=== PATIENT | female | born 1955 | race Caucasian/White ===

== ENCOUNTER 2016-07-23 14:45 | Emergency (ER) | payer OTHER ==
[~2016-07-23] VITALS: Ht 162.6 cm; Wt 105.8 kg
[2016-07-23] MEDS ORDERED: SODIUM CHLORIDE 0.9% 1000ML 1,000 ML IV STA (15:12)
[2016-07-23 15:16] VITALS: Ht 162.6 cm; Wt 105.8 kg
[2016-07-23] MEDS ORDERED: CEFAZOLIN SOD 1000MG/55 ML D5W IV STA (15:34)
[2016-07-23] MEDS ORDERED: BACL10TA PO (15:44)
[2016-07-23] MEDS ORDERED: GABA600T PO (15:44)
[2016-07-23] MEDS ORDERED: ACET-749 PO (15:44)
[2016-07-23] MEDS ORDERED: LISI2.5T5 PO (15:44)
[2016-07-23] MEDS ORDERED: LEVO50TA6 PO (15:44)
[2016-07-23] MEDS ORDERED: TRIA37.5 PO (15:44)
[2016-07-23] MEDS ORDERED: METF-383 PO (15:44)
[2016-07-23] MEDS ORDERED: VENL150T33 PO (15:44)
[2016-07-23] MEDS ORDERED: PANT40TA PO (15:44)
[2016-07-23] MEDS ORDERED: LORA-741 PO (15:44)
[2016-07-23] MEDS ORDERED: DIPHTHERIA/TETANUS/PERTUSSIS 0.5 ML SYR/VIAL IM. ONE (15:45)
[2016-07-23 15:49] LABS: BASO % 0.3 %; BASO ABS # 0.02 K/uL (0-0.2); COMPLETE YES; EOS % 7.9 %; HEMATOCRIT 42.5 % (37-47); IG% 0.4 %; LYMPH % 20.1 %; LYMPH ABS # 1.35 K/uL (1.2-3.4); MEAN CELL VOLUME 94.2 fL (80-100); MEAN CORPUSCULAR HEMOGLOBIN 29.9 pg (25-34); MEAN CORPUSCULAR HGB CONC 31.8 g/dl (32-36); MEAN PLATELET VOLUME 11.5 fL (7.4-10.4); NEUT % 64.3 %; PLATELET COUNT 138 K/uL (130-400); RED BLOOD COUNT 4.51 M/uL (4.2-5.4)
[2016-07-23 16:00] LABS: PROTHROMBIN TIME (PATIENT) 10.8 SECONDS (9.0-12.0)
--- NOTE | 2016-07-23 16:19 | DIAGNOSTIC IMAGING REPORT ---
RIGHT FOOT MIN 3 VIEWS ROUTINE CLINICAL HISTORY: Right 5th toe avulsion/open dislocation, fall. COMPARISON: None FINDINGS: A bandage is noted overlying the right fourth and fifth toes. There is a fracture/dislocation deformity of the right fifth metatarsophalangeal joint. Associated bone fragment is present. Fine detail is diminished on this exam. Tarsometatarsal joints are intact. No additional dislocations are present. IMPRESSION: Open fracture/dislocation deformity of the right fifth metatarsophalangeal joint with associated bone fragment. Electronically signed by: Garfield Harding M.D. 07/23/2016 4:17 PM Dictated Date/Time: 07/23/2016 4:15 PM
[2016-07-23 16:21] LABS: BUN/CREATININE RATIO 12.6 (10-20); CALCIUM 9.2 mg/dl (8.5-10.1); CREATININE 0.77 mg/dl (0.60-1.20); POTASSIUM 3.8 mmol/L (3.5-5.1)
[2016-07-23 16:30] LABS: THYROID STIMULATING HORMONE 7.58 uIu/ml (0.300-4.500)
[2016-07-23 17:06] LABS: URINE APPEARANCE CLOUDY (CLEAR); URINE COLOR DK YELLOW; URINE EPITHELIAL CELL AUTO 20-30 /lpf (0-5); URINE NITRITE NEG (NEG); URINE PH 5.5 (4.5-7.5); URINE SPECIFIC GRAVITY 1.041 (1.000-1.030); UROBILINOGEN NEG (NEG)
[2016-07-23 17:09] LABS: MANUAL MICROSCOPIC REQUIRED? NO; REVIEW REQ? YES
[2016-07-23 17:10] VITALS: O2SAT 95
[2016-07-23 17:10] LABS: URINE BILIRUBIN NEG (NEG)
[2016-07-23] MEDS ORDERED: MIDAZOLAM HCL 1 MG/ML 2ML VIAL ONE (17:14)
[2016-07-23] MEDS ORDERED: FENTANYL CITRATE INJ 50 MCG/1 ML 2 ML VIAL ONE (17:14)
[2016-07-23] MEDS ORDERED: EpHEDrine SULFATE INJ 50 MG/ML AMP IV PRN (17:30)
[2016-07-23] MEDS ORDERED: FENTANYL CITRATE INJ 50 MCG/1 ML 2 ML VIAL IV PRN (17:30)
[2016-07-23] MEDS ORDERED: ONDANSETRON INJ 2 MG/ML 2 ML VIAL IV PRN (17:30)
[2016-07-23] MEDS ORDERED: LABETALOL HCL IV 5 MG/ML 20ML IV PRN (17:30)
[2016-07-23] MEDS ORDERED: NALOXONE HCL 0.4 MG/1 ML VIAL/CARP IV PRN (17:30)
[2016-07-23] MEDS ORDERED: PHENYLEPHRINE 100MCG/ML 5ML SYR IV PRN (17:30)
[2016-07-23] MEDS ORDERED: ATROPINE SULFATE 0.1 MG/ML 5ML SYR IV PRN (17:30)
[2016-07-23] MEDS ORDERED: FLUMAZENIL 0.1 MG/1 ML 10 ML VIAL IV PRN (17:30)
[2016-07-23] MEDS ORDERED: HYDROmorphone INJ 2 MG/ML SYR/VIAL IV PRN (17:30)
[2016-07-23] MEDS ORDERED: MEPERIDINE HCL 25 MG/ML CARP IV PRN (17:30)
--- NOTE | 2016-07-23 17:52 | History and Physical ---
History & Physical Date July 23, 2016. History of Present Illness The patient is a 61 year old female with complaints of open fracture right 5th toe. occured after a fall Past Medical/Surgical History Medical Problems: (1) Hypercholesteremia (2) Hypertension (3) Multiple sclerosis Allergies Coded Allergies: Ibuprofen (Unverified Allergy, Severe, fluid retention, 07/23/16) Home Medications Scheduled Baclofen (Lioresal), 10 MG PO TID Levothyroxine Sodium (Levothyroxine Sodium), 1 TAB PO DAILY Lisinopril (Lisinopril), 2.5 MG PO DAILY Metformin Hcl (Glucophage), 850 MG PO BID Pantoprazole (Protonix), 40 MG PO DAILY Triamterene/Hctz (Dyazide 37.5MG/25MG), 1 TAB PO DAILY Venlafaxine Hcl (Venlafaxine Hcl Er), 1 TAB PO DAILY Scheduled PRN Acetaminophen/Codeine (Tylenol W/Codeine #3), 1-2 TAB PO Q6H PRN for Pain Lorazepam (Ativan), 0.5 MG PO TID PRN for Anxiety/Insomnia Miscellaneous Medications Gabapentin (Neurontin), 600 MG PO Physical Examination Skin: warm/dry, no rash Eyes: normal inspection, EOMI, sclerae normal ENT: normal ENT inspection Head: normocephalic Neck: supple Respiratory/Chest: lungs clear Cardiovascular: regular rate, rhythm Abdomen / GI: normal bowel sounds, non tender Extremities: + pertinent finding (open fracture of right 5th toe ) Plan of Treatment To OR emergerntly for I and D and piining of toe. R/b discussed
[2016-07-23] MEDS ORDERED: LIDOCAINE HCL 1% 20 ML VIAL ONE (18:01)
[2016-07-23] MEDS ORDERED: BACITRACIN 50000 UNIT VIAL ONE (18:02)
[2016-07-23] MEDS ORDERED: BUPIVACAINE 0.5 % 5 MG/1 ML MPF 30ML VIAL ONE (18:02)
[2016-07-23] MEDS ORDERED: LIDOCAINE HCL 2% 2 ML VIAL (20MG/ML) ONE (18:12)
[2016-07-23] MEDS ORDERED: PROPOFOL IV EMULSION 10 MG/ML 20 ML VIAL IV ONE ×2 (18:12→18:22)
[2016-07-23] MEDS ORDERED: CEFAZOLIN SOD 1 GM VIAL ONE (18:12)
--- NOTE | 2016-07-23 18:51 | History and Physical ---
History & Physical Date July 23, 2016. History of Present Illness Past Medical/Surgical History Medical Problems: (1) Hypercholesteremia (2) Hypertension (3) Multiple sclerosis Allergies Coded Allergies: Ibuprofen (Unverified Allergy, Severe, fluid retention, 07/23/16) Home Medications Scheduled Baclofen (Lioresal), 10 MG PO TID Levothyroxine Sodium (Levothyroxine Sodium), 1 TAB PO DAILY Lisinopril (Lisinopril), 2.5 MG PO DAILY Metformin Hcl (Glucophage), 850 MG PO BID Pantoprazole (Protonix), 40 MG PO DAILY Triamterene/Hctz (Dyazide 37.5MG/25MG), 1 TAB PO DAILY Venlafaxine Hcl (Venlafaxine Hcl Er), 1 TAB PO DAILY Scheduled PRN Acetaminophen/Codeine (Tylenol W/Codeine #3), 1-2 TAB PO Q6H PRN for Pain Lorazepam (Ativan), 0.5 MG PO TID PRN for Anxiety/Insomnia Miscellaneous Medications Gabapentin (Neurontin), 600 MG PO Plan of Treatment see dicatated H and P
--- NOTE | 2016-07-23 19:12 | Anesthesiology Progress Note ---
Anesthesia Post Op Note Date & Time July 23, 2016 at 19:12 Vital Signs Pain Intensity: 0 Vital Signs Past 12 Hours Date Time Temp Pulse Resp B/P Pulse Ox O2 Delivery O2 Flow Rate FiO2 07/23/16 19:10 36.2 77 16 132/74 97 Mask 07/23/16 19:00 36.2 83 16 115/81 100 Mask 10 07/23/16 17:28 36.9 75 16 139/89 96 Room Air 07/23/16 17:10 36.8 78 16 136/80 95 07/23/16 17:00 78 16 136/80 07/23/16 15:56 76 07/23/16 15:48 74 16 136/80 95 Room Air 07/23/16 15:48 94 Room Air 07/23/16 14:54 36.8 78 18 148/90 94 Room Air Notes Mental Status: alert / awake / arousable, participated in evaluation Pt Amnestic to Procedure: Yes Nausea / Vomiting: adequately controlled Pain: adequately controlled Airway Patency, RR, SpO2: stable & adequate BP & HR: stable & adequate Hydration State: stable & adequate Anesthetic Complications: no major complications apparent
[2016-07-23] MEDS ORDERED: OXYCODONE/ACETAMINOPHEN 5-325 TAB PO PRN ×2 (19:15)
[2016-07-23 19:20] VITALS: BP 125/74; PULSE 70; TEMP 36.5; O2SAT 95
--- NOTE | 2016-07-23 19:28 | HISTORY & PHYSICAL EXAMINATION ---
DATE OF ADMISSION: 07/23/2016 HISTORY OF PRESENT ILLNESS: This is a 61-year-old female who I have been consulted from the Emergency Department. She sustained an injury which occurred after a fall, today she noted injury to her toe, she is uncertain of the exact mechanism. She has an open fracture to the right toe. PAST MEDICAL HISTORY: Prediabetes, history of multiple sclerosis, currently on disability for and history of hypercholesterolemia. PHYSICAL EXAMINATION HEART: Regular rhythm. LUNGS: Clear. EXTREMITIES: Right foot exam shows open fracture at the toe, at the base of the proximal phalanx of the toe open, bone is exposed, the metatarsal head. There is about 70 degrees gross angular deformity. IMAGING DATA: Radiographic evaluation reaveals a markedly displaced proximal phalanx fracture of the right fifth toe. ASSESSMENT: 1. This is a 61-year-old female with an open grade 2 right fifth toe proximal phalanx fracture with significant displacement. 1. Multiple sclerosis. PLAN: We will take her emergently to the operating room for irrigation, debridement and pinning, will do this under local MAC anesthesia, likely with a local block and sedation. I discussed possibly she may lose her toe, possibility of infection, nonunion of the bone, stiffness, etc. We also discussed options of amputation, which I did consent her for. Plan for surgical intervention shortly. FELY
--- NOTE | 2016-07-23 19:41 | EMERGENCY ROOM VISIT NOTE ---
History Report prepared by Janay: Sandra Oscar Under the Supervision of: Dr. Mika Bell M.D. First contact with patient: 15:12 Chief Complaint: FALL Stated Complaint: FALL History of Present Illness The patient is a 61 year old male who presents to the Emergency Room with complaints of a sudden right foot injury secondary to a fall that occurred 1.5 hours prior to arrival. The patient also notes the following associated symptoms, leg weakness, which is a chronic issue from her MS. Her legs "just gave out". The patient denies taking any pain medication prior to arrival. Tetanus UTD within the last 8 years. She has chronic numbness in the legs secondary to neuropathy. Pain is rated 1/10 and describes her discomfort as a burning pain. She had a UTI that was treated a week ago. The patient denies any other injury. She states that she has seen orthopedics in [place] in the past. The patient notes a history of hypertension, pre-diabetes, and high cholesterol. Pt denies LOC, headache, fevers, chills, diaphoresis, visual changes, neck pain, chest pain, breathing difficulties, nausea, vomiting, abdominal pain, back pain, melena, hematochezia, new urinary symptoms, lymphadenopathy, rash, or other complaints. Source of History: patient Onset: 1.5 hours prior to arrival Position: foot (right) Symptom Intensity: 1/10 Quality: burning Timing: other (sudden) Associated Symptoms: + numbness (bilateral leg), + weakness (bilateral leg) Review of Systems See HPI for pertinent positives and negatives. A total of ten systems were reviewed and were otherwise negative. Past Medical & Surgical Medical Problems: (1) Hypercholesteremia (2) Hypertension (3) Multiple sclerosis Family History No pertinent family history stated. Social History Smoking Status: Never Smoker Marital Status: single Occupation Status: disabled Current/Historical Medications Scheduled Baclofen (Lioresal), 10 MG PO TID Levothyroxine Sodium (Levothyroxine Sodium), 1 TAB PO DAILY Lisinopril (Lisinopril), 2.5 MG PO DAILY Metformin Hcl (Glucophage), 850 MG PO BID Pantoprazole (Protonix), 40 MG PO DAILY Triamterene/Hctz (Dyazide 37.5MG/25MG), 1 TAB PO DAILY Venlafaxine Hcl (Venlafaxine Hcl Er), 1 TAB PO DAILY Scheduled PRN Acetaminophen/Codeine (Tylenol W/Codeine #3), 1-2 TAB PO Q6H PRN for Pain Lorazepam (Ativan), 0.5 MG PO TID PRN for Anxiety/Insomnia Miscellaneous Medications Gabapentin (Neurontin), 600 MG PO Allergies Coded Allergies: Ibuprofen (Unverified Allergy, Severe, fluid retention, 07/23/16) Physical Exam Vital Signs Date Time Temp Pulse Resp B/P Pulse Ox O2 Delivery O2 Flow Rate FiO2 07/23/16 19:20 36.5 70 16 125/74 95 Room Air 07/23/16 19:15 36.2 72 16 143/72 97 Room Air 07/23/16 19:10 36.2 77 16 132/74 97 Mask 07/23/16 19:00 36.2 83 16 115/81 100 Mask 10 07/23/16 17:28 36.9 75 16 139/89 96 Room Air 07/23/16 17:10 36.8 78 16 136/80 95 07/23/16 17:00 78 16 136/80 07/23/16 15:56 76 07/23/16 15:48 74 16 136/80 95 Room Air 07/23/16 15:48 94 Room Air 07/23/16 14:54 36.8 78 18 148/90 94 Room Air Physical Exam GENERAL: Awake, alert, well-appearing, in no distress HENT: Normocephalic, atraumatic. Oropharynx unremarkable. EYES: Normal conjunctiva. Sclera non-icteric. NECK: Supple. No nuchal rigidity. FROM. No JVD. RESPIRATORY: Clear to auscultation. CARDIAC: Regular rate, normal rhythm. Extremities warm and well perfused. Pulses equal. ABDOMEN: Soft, non-distended. No tenderness to palpation. No rebound or guarding. No masses. RECTAL: Deferred. MUSCULOSKELETAL: Near avulsion of the right 5th toe, arnulfo fragments are exposed , bleeding is controlled, decreased sensation bilateral lower extremities. 2+ pitting edema bilaterally. NEURO: Normal sensorium. No sensory or motor deficits noted. SKIN: No rash or jaundice noted. Medical Decision & Procedures ER Provider Diagnostic Interpretation: X-ray: Per my interpretation, radiologist review. RIGHT FOOT MIN 3 VIEWS ROUTINE CLINICAL HISTORY: Right 5th toe avulsion/open dislocation, fall. COMPARISON: None FINDINGS: A bandage is noted overlying the right fourth and fifth toes. There is a fracture/dislocation deformity of the right fifth metatarsophalangeal joint. Associated bone fragment is present. Fine detail is diminished on this exam. Tarsometatarsal joints are intact. No additional dislocations are present. IMPRESSION: Open fracture/dislocation deformity of the right fifth metatarsophalangeal joint with associated bone fragment. Electronically signed by: Garfield Harding M.D. 07/23/2016 4:17 PM Dictated Date/Time: 07/23/2016 4:15 PM Laboratory Results 07/23/16 15:25 Red Blood Count 4.51, Mean Corpuscular Volume 94.2, Mean Corpuscular Hemoglobin 29.9, Mean Corpuscular Hemoglobin Concent 31.8, Mean Platelet Volume 11.5, Neutrophils (%) (Auto) 64.3, Lymphocytes (%) (Auto) 20.1, Monocytes (%) (Auto) 7.0, Eosinophils (%) (Auto) 7.9, Basophils (%) (Auto) 0.3, Neutrophils # (Auto) 4.30, Lymphocytes # (Auto) 1.35, Monocytes # (Auto) 0.47, Eosinophils # (Auto) 0.53, Basophils # (Auto) 0.02 07/23/16 15:25 Test 07/23/16 15:25 07/23/16 16:50 07/23/16 19:11 White Blood Count 6.70 K/uL (4.8-10.8) Red Blood Count 4.51 M/uL (4.2-5.4) Hemoglobin 13.5 g/dL (12.0-16.0) Hematocrit 42.5 % (37-47) Mean Corpuscular Volume 94.2 fL (80-100) Mean Corpuscular Hemoglobin 29.9 pg (25-34) Mean Corpuscular Hemoglobin Concent 31.8 g/dl (32-36) Platelet Count 138 K/uL (130-400) Mean Platelet Volume 11.5 fL (7.4-10.4) Neutrophils (%) (Auto) 64.3 % Lymphocytes (%) (Auto) 20.1 % Monocytes (%) (Auto) 7.0 % Eosinophils (%) (Auto) 7.9 % Basophils (%) (Auto) 0.3 % Neutrophils # (Auto) 4.30 K/uL (1.4-6.5) Lymphocytes # (Auto) 1.35 K/uL (1.2-3.4) Monocytes # (Auto) 0.47 K/uL (0.11-0.59) Eosinophils # (Auto) 0.53 K/uL (0-0.5) Basophils # (Auto) 0.02 K/uL (0-0.2) RDW Standard Deviation 44.1 fL (36.4-46.3) RDW Coefficient of Variation 12.8 % (11.5-14.5) Immature Granulocyte % (Auto) 0.4 % Immature Granulocyte # (Auto) 0.03 K/uL (0.00-0.02) Prothrombin Time 10.8 SECONDS (9.0-12.0) Prothromb Time International Ratio 1.0 (0.9-1.1) Activated Partial Thromboplast Time 27.0 SECONDS (21.0-31.0) Partial Thromboplastin Ratio 1.0 Anion Gap 8.0 mmol/L (3-11) Est Creatinine Clear Calc Drug Dose 91.0 ml/min Estimated GFR () 96.6 Estimated GFR (Non- 83.3 BUN/Creatinine Ratio 12.6 (10-20) Calcium Level 9.2 mg/dl (8.5-10.1) Magnesium Level 2.0 mg/dl (1.8-2.4) Total Bilirubin 0.2 mg/dl (0.2-1) Direct Bilirubin 0.1 mg/dl (0-0.2) Aspartate Amino Transf (AST/SGOT) 31 U/L (15-37) Alanine Aminotransferase (ALT/SGPT) 40 U/L (12-78) Alkaline Phosphatase 115 U/L (45-117) Total Protein 7.3 gm/dl (6.4-8.2) Albumin 3.6 gm/dl (3.4-5.0) Lipase 152 U/L (73-393) Thyroid Stimulating Hormone (TSH) 7.580 uIu/ml (0.300-4.500) Urine Color DK YELLOW Urine Appearance CLOUDY (CLEAR) Urine pH 5.5 (4.5-7.5) Urine Specific [place] 1.041 (1.000-1.030) Urine Protein TRACE (NEG) Urine Glucose (UA) NEG (NEG) Urine Ketones TRACE (NEG) Urine Occult Blood NEG (NEG) Urine Nitrite NEG (NEG) Urine Bilirubin NEG (NEG) Urine Urobilinogen NEG (NEG) Urine Leukocyte Esterase MODERATE (NEG) Urine WBC (Auto) >30 /hpf (0-5) Urine RBC (Auto) 0-4 /hpf (0-4) Urine Hyaline Casts (Auto) 1-5 /lpf (0-5) Urine Epithelial Cells (Auto) 20-30 /lpf (0-5) Urine Bacteria (Auto) NEG (NEG) Urine Pathogenic Casts /lpf (0) Bedside Glucose 138 mg/dl (70-90) Laboratory results reviewed by me Medications Administered Medications (Trade) Dose Ordered Sig/Jenny Route Start Time Stop Time Status Last Admin Dose Admin Sodium Chloride (Nss 1000ml) 1,000 ml @ 125 mls/hr Q8H STAT IV 07/23/16 15:12 07/23/16 23:11 07/23/16 15:47 125 MLS/HR Cefazolin Sodium (Ancef 1000mg/55 ml D5W) 1,000 mg NOW STAT IV 07/23/16 15:34 07/23/16 15:35 DC 07/23/16 15:47 1,000 MG Diphtheria/ Pertussis/Tetanus Vacc (Adacel Inj) 0.5 ml ONCE ONCE IM. 07/23/16 15:45 07/23/16 15:46 DC 07/23/16 15:48 0.5 ML Lidocaine HCl (Xylocaine 1% Inj (Local)) 20 ml STK-MED ONCE .ROUTE 07/23/16 18:01 07/23/16 18:02 DC 07/23/16 18:07 20 ML Bupivacaine HCl (Marcaine 0.5% MPF Inj) 30 ml STK-MED ONCE .ROUTE 07/23/16 18:02 07/23/16 18:03 DC 07/23/16 18:07 20 ML Bacitracin (Bacitracin Inj) 50,000 units STK-MED ONCE .ROUTE 07/23/16 18:02 07/23/16 18:03 DC 07/23/16 18:30 50,000 UNITS ECG Indication: weakness Rate (beats per minute): 71 Rhythm: normal sinus Findings: no acute ischemic change, no ectopy ED Course 1512: Ordered Sodium Chloride 1000 ml @ 125 mls/hr IV. 1517: The patient was evaluated in room C5. A complete history and physical exam was performed. 1534: Ordered Cefazolin Sodium 1000 mg IV. 1545: Ordered Adacel 0.5 ml IM. 1634: I reevaluated the patient and she is doing well. 1636: I discussed the patient's case with Dr. Gunter [facility]oped[facility]. He is going to look at the patient's x-rays and will call back. 1656: I rediscussed the patient's case with Dr. Gunter Orthopedic[facility]. He is going to take the patient to the OR. 1657: I reevaluated the patient and she is resting comfortably. I discussed all of the exam findings with her and I discussed the treatment plan. She verbalized complete understanding and agreement. She will be taken to the OR shortly. Medical Decision Triage Nursing notes reviewed. The patient's presentation and history were concerning for right foot injury and weakness. Etiologies such as fracture, dislocation, soft tissue injury, metabolic, infection, hypo/hyperglycemia, electrolyte abnormalities, cardiac sources, intracerebral event, toxicologic, neurologic, as well as others were entertained. The patient had unremarkable laboratory testing. She had x-rays performed that showed a fracture dislocation open. This was reported by clinical examination. Because of this consultation was made with orthopedics, Dr. Anderson Gunter. The patient was given Ancef and tetanus. She declined analgesia. She was hydrated. After reviewing the imaging and the history the patient was taken to the operative suite for further intervention. She has generalized weakness but states this is baseline for her MS. No obvious abnormalities were seen on laboratory testing. Cultures pending. The chart was completed utilizing [employer] Speech voice recognition software. Grammatical errors, random word insertions, pronoun errors, and incomplete sentences are an occasional consequence of this system due to software limitations, ambient noise, and hardware issues. Any formal questions or concerns about the content, text, or information contained within the body of this dictation should be directly addressed to the physician for clarification. Consults Time Called: 1556 Consulting Physician: Dr. Gunter, Orthopedics Returned Call: 1636 I discussed the patient's case with David Campbell. He is going to look at the patient's xrays and will call back. Impression Primary Impression: Open fracture dislocation of toe of right foot Additional Impression: Weakness Scribe Attestation The scribe's documentation has been prepared under my direction and personally reviewed by me in its entirety. I confirm that the note above accurately reflects all work, treatment, procedures, and medical decision making performed by me. Departure Information Dispostion Being Evaluated By Surgeon Problem Qualifiers
[2016-07-23 19:50] VITALS: BP 123/87; PULSE 73; TEMP 36.6; O2SAT 94
[2016-07-23 20:18] VITALS: BP 123/72; PULSE 65; TEMP 36.9; O2SAT 95
--- NOTE | 2016-07-23 20:29 | DIAGNOSTIC IMAGING REPORT ---
FLUOROSCOPIC IMAGES OF THE RIGHT FOOT CLINICAL HISTORY: Right fifth toe fixation. COMPARISON STUDY: Right foot radiographs performed earlier today. Fluoroscopy time: 1 minute and 31 seconds. FINDINGS: 4 fluoroscopic images demonstrate K wire fixation of the right fifth toe. Alignment of the right fifth metatarsophalangeal joint appears anatomic. Alignment of the fracture through the base and proximal shaft of the proximal phalanx of right fifth toe has markedly improved and is now near anatomic. There are no unexpected radiopaque foreign bodies. IMPRESSION: Expected findings following internal fixation of the right fifth toe, as described above Electronically signed by: Garfield Harding M.D. 07/23/2016 8:28 PM Dictated Date/Time: 07/23/2016 8:25 PM
--- NOTE | 2016-07-23 20:42 | Discharge Instructions ---
Discharge Instructions Date of Service July 23, 2016. Admission Reason for Admission: FALL Discharge Discharge Diagnosis / Problem: 5th toe fracture Discharge Goals Goal(s): Decrease discomfort, Improve function Activity Recommendations Activity Limitations: as noted below (may partial weightbear on heel) Lifting Limitations: gradually increase as tolerated Exercise/Sports Limitations: rest today Shower/Bathe: keep incision dry (keep dressing dry. may change in 3 days and reapply dressing) Weightbearing Status: Right partial, Right weightbearing . Instructions / Follow-Up Instructions / Follow-Up ACTIVITY RECOMMENDATIONS: * You may place as much weight as is comfortable on your foot using the shoe provided unless you are instructed otherwise. SPECIAL CARE INSTRUCTIONS: * Some drainage onto the dressing is normal and is no cause for alarm. * Some swelling is natural especially after walking. When resting, keep your foot elevated above the level of your heart. * Call the doctor's office at if you notice increased drainage, fever over 101 degrees F. or severe constant pain. BANDAGE: * Leave bandage/cast in place unless otherwise directed. * Keep bandage/cast dry at all times. PIN CARE: * Leave pins alone. * If pins come loose or fall out, notify physician. FOLLOW UP VISIT: If appointment is not already scheduled: Please call [facility] [place] to make a follow-up appointment after your surgery at . Please call for follow up appt with Dr Gunter in 10-14 days Current Hospital Diet Patient's current hospital diet: Regular Diet Discharge Diet Recommended Diet: Regular Diet Procedures Procedures Performed: Right 5th Toe Open Fracture Irrigation and Debridement and Pinning Pending Studies Studies pending at discharge: no Medical Emergencies . Who to Call and When: Medical Emergencies: If at any time you feel your situation is an emergency, please call [phone] immediately. . Non-Emergent Contact Non-Emergency issues call your: Primary Care Provider . "Provider Documentation" section prepared by Temo Albert. . VTE Core Measure Inpt VTE Proph given/why not?: Contraindicated
[2016-07-23] MEDS ORDERED: PERCOCET HOME PACK PO PRN (20:45)
[2016-07-23] MEDS ORDERED: NURSING VERBAL MED ORDER ONE (20:45)
[2016-07-23] MEDS ORDERED: OXYC-57 PO (20:54)
--- NOTE | 2016-07-23 21:13 | [facility] Post Operative Brief Note ---
Immediate Operative Summary Operative Date July 23, 2016. Pre-Operative Diagnosis Open Fracture Right 5th Toe Post-Operative Diagnosis Open Fracture Right 5th Toe, laceration Procedure(s) Performed Right 5th Toe Open Fracture Irrigation and Debridement , ORIF, closure laceration Surgeon Dr. Gunter [employer] Surgeon(s) none Estimated Blood Loss 2ml Findings open fx of proximal phalanx Specimens None per surgeon Anesthesia local mac Complication(s) None
--- NOTE | 2016-07-24 00:04 | OPERATIVE REPORT ---
DATE OF OPERATION: 07/23/2016 PREOPERATIVE DIAGNOSES: 1. Right fifth open proximal phalanx fracture. 2. Right foot laceration, 2 cm. POSTOPERATIVE DIAGNOSIS: Same. ANESTHESIA: Digital block with sedation. PROCEDURE: 1. Small right fifth toe ORIF of open proximal phalanx fracture. 2. Right proximal phalanx fracture I\T\D of open fracture. 3. Right foot closure laceration, 2 cm. SURGEON: Dr. Gunter. LEAD CLINICAL RESEARCH COORDINATOR: None. INDICATIONS: This is a 61-year-old female who sustained an open fracture to the toe. She presents with marked displacement of the toes. The risks and benefits have been discussed including, but not limited to, risk of infection, nerve injury, stiffness, loss of motion, failure to improve, etc. The patient is agreeable and wishes to proceed. DESCRIPTION OF PROCEDURE: The patient's open wound was inspected and open fracture was confirmed. I irrigated the area copiously with 1 liter of normal and I then performed debridement of skin, subcutaneous tissue and bone. The toe was then aligned with traction under direct reduction maneuver. I performed open reduction by placing a pin directly to the fracture site, a pin was then placed out distally at the end of the toe. The toe was then opened reduced and pin was driven across the fracture site and then subsequently across the metatarsophalangeal joint into the metatarsal head. This resulted in good stability and good alignment. Laceration was 2 cm in length and this was closed with 4-0 nylon in a running fashion. The pin was capped and the patient was placed in a soft dressing and placed in a flat-soled shoe. Postoperative plan will be partial weightbearing on the heel with the use of a walker, as patient typically is ambulatory with a walker. I attest to the content of the Intraoperative Record and any orders documented therein. Any exceptio ns are noted below.
== END 2016-07-23 17:19 | disposition still patient (30) ==
LOC: EDBD 14:45 → C.EDC 14:49
DX: S92.351B Displaced fracture of fifth metatarsal bone, right foot, initial encounter for open fracture (principal); S91.311A Laceration without foreign body, right foot, initial encounter; W19.XXXA Unspecified fall, initial encounter; R53.1 Weakness; Z23 Encounter for immunization; I10 Essential (primary) hypertension; E78.00 Pure hypercholesterolemia, unspecified; R73.03 Prediabetes; G35 Multiple sclerosis; Z79.4 Long term (current) use of insulin; Z79.899 Other long term (current) drug therapy; Z88.6 Allergy status to analgesic agent